=== PATIENT | male | born 1950 | race Two or more races ===

== ENCOUNTER 2025-06-02 06:30 | Inpatient (IN) | payer MEDICAID, OTHER ==
[~2025-06-02] VITALS: Ht 175.3 cm; Wt 79.5 kg
--- NOTE | 2025-06-02 06:52 | ED.PDOC ---
Altered Mental Status HPI Comments 74 y/o M, with known PMHx of DM is BIBA for CC of ALOC. EMS reports, S.O called d/t patient being on a private residence lawn, where he claimed he lived. Per EMS, patient did not live on residence and owners do not know who he is. EMS relays, patient is a poor historian and appears to have retrograde amnesia, jennifer ng unable to recall events leading up to his finding. Patient has notable abrasions to his bilateral knees and palms. No other symptoms or modifiers are obtainable at this time. Time Seen by MD: 06:45 Reviewed Notes: Nurses Notes, Outside Parts Sales Notes, Medications, Allergies Allergies: Coded Allergies: NO KNOWN ALLERGIES (Unverified , 06/02/25) Information Source: Emergency Med Personnel Mode of Arrival: EMS Severity: Moderate Timing: Hours Duration: Since onset Prehospital treatment: None Quality: Change in Behavior, Confusion Recent: None History of: Diabetes Associated Signs and Symptoms: None Past Medical History PAST MEDICAL HISTORY: DM Surgical History: Unobtainable Family History Family History: Unobtainable Social History Smoker: Unobtainable Alcohol: Unobtainable Drugs: Unobtainable Lives In: Unobtainable Unable to Obtain due to: Altered Mental Status Physical Exam General Appearance: Moderate Distress HEENT: Normal ENT Inspection, Pharynx Normal, TMs Normal Neck: Full Range of Motion, Non-Tender, Normal, Normal Inspection Respiratory: Chest Non-Tender, Lungs Clear, No Accessory Muscle Use, No Respiratory Distress, Normal Breath Sounds Cardiovascular: No Edema, No JVD, No Murmur, No Gallop, Normal Peripheral Pulses, Regular Rate/Rhythm Breast Exam: Deferred Gastrointestinal: No Organomegaly, Non Tender, No Pulsatile Mass, Normal Bowel Sounds, Soft Genitalia: Deferred Pelvic: Deferred Rectal: Deferred Extremities: No calf tenderness, Normal capillary refill, Normal range of motion, Non-tender, No pedal edema Musculoskeletal : Apperance: Normal Neurologic: md ophthalmologist II-XII nml as Tested, Disoriented (Able to answering name simple questions), No Motor Deficits, Normal Affect, Normal Mood, No Sensory Deficits Cerebellar Function: NOT DONE Reflexes: NOT DONE Skin: Bruises (Bilateral hand bilateral knee), Dry, Normal Color, Warm Peripheral Pulses: 3+ Radial (R), 3+ Radial (L) Lymphatic: No Adenopathy EKG EKG : Pulse Rate (adult): 85 [place]: Normal Cardiac Rhythm: NSR Block: None Hypertrophy: None ST: Normal Was a procedure done? Was a procedure done?: No Differential Diagnosis (ALOC) Differential Diagnosis: Dehydration, Encephalopathy, Closed Head Injury X-Ray, Labs, Meds, VS Vital Signs Date Time Temp Pulse Resp B/P (MAP) Pulse Ox O2 Delivery O2 Flow Rate FiO2 06/02/25 07:01 85 06/02/25 06:58 85 06/02/25 06:35 98.0 85 17 115/77 96 98.0 Lab Test 06/02/25 08:05 06/02/25 07:10 Range/Units POC Glucose 143 H 70-106 mg/dl White Blood Count 12.8 H 4.4-10.8 10^3/uL Red Blood Count 4.76 4.5-5.90 10^6/uL Hemoglobin 15.6 13.5-17.5 g/dL Hematocrit 44.1 41.0-53.0 % Mean Corpuscular Volume 92.7 80.0-100.0 fL Mean Corpuscular Hemoglobin 32.9 H 28.0-32.0 pg Mean Corpuscular Hemoglobin Concent 35.4 32.0-36.0 g/dL Red Cell Distribution Width 13.9 11.8-14.3 % Platelet Count 119 L 140-450 10^3/uL Mean Platelet Volume 8.2 6.9-10.8 fL Neutrophils (%) (Auto) 87.7 H 37.0-80.0 % Lymphocytes (%) (Auto) 6.6 L 10.0-50.0 % Monocytes (%) (Auto) 4.8 0.0-12.0 % Eosinophils (%) (Auto) 0.7 0.0-7.0 % Basophils (%) (Auto) 0.2 0.0-2.0 % Neutrophils # (Auto) 11.2 H 1.6-8.6 10 ^3/uL Lymphocytes # (Auto) 0.8 0.4-5.4 10 ^3/uL Monocytes # (Auto) 0.6 0-1.3 10 ^3/uL Eosinophils # (Auto) 0.1 0-0.8 10 ^3/uL Basophils # (Auto) 0 0-0.2 10 ^3/uL Nucleated Red Blood Cells 0.0 % Sodium Level 141 136-145 mmol/L Potassium Level 3.8 3.5-5.1 mmol/L Chloride Level 105 98-107 mmol/L Carbon Dioxide Level 25 20-31 mmol/L Anion Gap 11 5-15 Blood Urea Nitrogen 23 9-23 mg/dL Creatinine 1.23 0.700-1.30 mg/dL Glomerular Filtration Rate Calc 62 >90 mL/min BUN/Creatinine Ratio 18.7 10.0-20.0 Serum Glucose 178 H 74-106 mg/dL Calcium Level 9.5 8.7-10.4 mg/dL Troponin I High Sensitivity 10 </=54 ng/L Patient altered. Does not answer simple questions. Vitals stable. Answering questions. Has a bruises on his bilateral hand and knees. Establish intravenous access. Was given fluids. Tetanus. Continue to monitor. [place] [address] Ph: [phone] DIAGNOSTIC IMAGING Diagnostic Imaging Report : [id number] Signed PATIENT: WASHINGTON SIMMONS ACCT: [id number] UNIT: [id number] : 1950 LOC: ER ROOM / BED: / AGE / SEX: 74 / M ADM STATUS: REG ER SERVICE 0644 ORDERING PHYSICIAN: RADHA PACHECO MD PROCEDURE(s): HWOCT - HEAD WITHOUT CONTRAST REASON: fall ORDER NUMBER(s): [id number], ACCESSION NUMBER(s): [id number] CT HEAD WITHOUT CONTRAST INDICATION: fall EXAM DATE: 06/02/2025 07:30 AM COMPARISON: None RADIATION DOSE: CTDIvol: mGy, DLP: mGy*cm PROCEDURE: CT scans of the head were obtained from the vertex to the skull base. Sagittal and coronal reconstructions were provided. All CT scans at this medical facility are performed using dose modulation techniques as appropriate to a performed exam including the following: Automated exposure control was utilized; adjustment of the MA and/or KV according to patient size; and use of iterative reconstruction technique. FINDINGS: There is sulcal and ventricular prominence. The brainshows normal morphology and brewster-white matter differentiation, without intracranial hemorrhage, extra-axial fluid collection, mass effect or acute large vessel infarct. The ventricles are normal in size. The basal cisterns are patent. The skull and visible facial bones are intact. The paranasal sinuses, mastoid air cells and middle ear cavities are well-aerated. The soft tissues of the scalp are unremarkable. Right orbit calcifications are noted. IMPRESSION: No acute intracranial abnormality. ATED BY: ANDRES DANIELS MD DICTATED DATE/TIME: 06/02/25755 SIGNED BY: ANDRES DANIELS MD SIGNED DATE/TIME: 06/02/25755 CC: [place] [address] Ph: [phone] DIAGNOSTIC IMAGING Diagnostic Imaging Report : [id number] Signed PATIENT: WASHINGTON SIMMONS ACCT: [id number] UNIT: [id number] : 1950 LOC: ER ROOM / BED: / AGE / SEX: 74 / M ADM STATUS: REG ER SERVICE 3 ORDERING PHYSICIAN: RADHA PACHECO MD PROCEDURE(s): RKNE2 - R KNEE 2V XRAY REASON: fall ORDER NUMBER(s): [id number], ACCESSION NUMBER(s): [id number] XY R KNEE 2V XRAY, INDICATION: fall TECHNICAL DATA: Frontal and lateral views were obtained of the right knee. COMPARISON: None FINDINGS: No fracture is identified. Medial, lateral and patellofemoral compartment joint spaces are maintained. Alignment is anatomic. Soft tissues are within normal limits. No joint effusion is demonstrated. IMPRESSION: No acute fracture or dislocation of the right knee. ATED BY: ANDRES DANIELS MD DICTATED DATE/TIME: 06/02/25821 SIGNED BY: ANDRES DANIELS MD SIGNED DATE/TIME: 06/02/25821 CC: [address] [address] Ph: [phone] DIAGNOSTIC IMAGING Diagnostic Imaging Report : [id number] Signed PATIENT: WASHINGTON SIMMONS ACCT: [id number] UNIT: [id number] : 1950 LOC: ER ROOM / BED: / AGE / SEX: 74 / M ADM STATUS: REG ER SERVICE ORDERING PHYSICIAN: RADHA PACHECO MD PROCEDURE(s): LKNE2 - L KNEE 2V XRAY REASON: fall ORDER NUMBER(s): [id number], ACCESSION NUMBER(s): [id number] CLINICAL INDICATION: fall TECHNIQUE: XY L KNEE 2V XRAY Comparison: None FINDINGS/IMPRESSION: : There is no evidence of acute fracture or dislocation. Moderate tricompartmental degenerative change. ATED BY: POLO FREEMAN MD DICTATED DATE/TIME: 06/02/25820 SIGNED BY: POLO FREEMAN MD SIGNED DATE/TIME: 06/02/25820 CC: [place] [address] Ph: [phone] DIAGNOSTIC IMAGING Diagnostic Imaging Report : [id number] Signed PATIENT: WASHINGTON SIMMONS ACCT: [id number] UNIT: [id number] : 1950 LOC: ER ROOM / BED: / AGE / SEX: 74 / M ADM STATUS: REG ER SERVICE ORDERING PHYSICIAN: RADHA PACHECO MD PROCEDURE(s): RHAN2 - R HAND 2 VIEW XRAY REASON: fall ORDER NUMBER(s): [id number], ACCESSION NUMBER(s): [id number] XY R HAND 2 VIEW XRAY, INDICATION: fall TECHNICAL DATA: Frontal, and lateral views were obtained of the right hand. COMPARISON: None FINDINGS: No fracture is identified. Joint spaces are maintained. Alignment is anatomic. Soft tissues are within normal limits. IMPRESSION: No acute fracture or dislocation of the right hand. ATED BY: ANDRES DANIELS MD DICTATED DATE/TIME: 06/02/25822 SIGNED BY: ANDRES DANIELS MD SIGNED DATE/TIME: 06/02/25822 CC: [place] [address] Ph: [phone] DIAGNOSTIC IMAGING Diagnostic Imaging Report : [id number] Signed PATIENT: WASHINGTON SIMMONS ACCT: [id number] UNIT: [id number] : 1950 LOC: ER ROOM / BED: / AGE / SEX: 74 / M ADM STATUS: REG ER SERVICE 3 ORDERING PHYSICIAN: RADHA PACHECO MD PROCEDURE(s): LHAN2 - L HAND 2V XRAY REASON: fall ORDER NUMBER(s): [id number], ACCESSION NUMBER(s): [id number] XY L HAND 2V XRAY, INDICATION: fall TECHNICAL DATA: Frontal and lateral views were obtained of the left hand. COMPARISON: None FINDINGS: No acute fracture is identified. Joint spaces are maintained. Alignment is anatomic. Soft tissues are within normal limits. Old ulna styloid fracture. IMPRESSION: No acute fracture or dislocation of the left hand. ATED BY: ANDRES DANIELS MD DICTATED DATE/TIME: 06/02/25823 SIGNED BY: ANDRES DANIELS MD SIGNED DATE/TIME: 06/02/25823 CC: Time of 1ST Reevaluation: 07:15 Reevaluation 1ST: Unchanged Patient Education/Counseling: Diagnosis, Treatment Family Education/Counseling: No Family Present SEPSIS Sepsis Screen Physician Orders R Hand 2 View Xray (06/02/25 06:44) L Hand 2v Xray (06/02/25 06:44) Troponin-I Hs (06/02/25 07:44) Troponin-I Hs (06/02/25 09:44) Head Without Contrast (06/02/25 06:44) R Knee 2v Xray (06/02/25 06:44) L Knee 2v Xray (06/02/25 06:44) Vital Signs Date Time Temp Pulse Resp B/P (MAP) Pulse Ox O2 Delivery O2 Flow Rate FiO2 06/02/25 07:01 85 06/02/25 06:58 85 06/02/25 06:35 98.0 85 17 115/77 96 98.0 Laboratory Tests Test 06/02/25 07:10 White Blood Count 12.8 10^3/uL (4.4-10.8) H Departure 1 Departure Time of Disposition: 06:55 Impression: Primary Impression: Metabolic encephalopathy Disposition: 09 ADMITTED INPATIENT Admit to: Med Surg Condition: Guarded Critical Care Note Critical Care Time?: No Stability Stability form required: No Heart Score Heart Score: Heart Score Response (Comments) Value History N/A 0 EKG N/A 0 Age N/A 0 Risk Factors N/A 0 Troponin N/A 0 Total 0 I personally scribed for RADHA PACHECO MD ([email or web address]) on 06/02/25 at 06:52. Electronically submitted by Alissa Lindsay ([email or web address]). I personally scribed for RADHA PACHECO MD ([email or web address]) on 06/02/25 at 07:01. Electronically submitted by Alissa Lindsay ([email or web address]). I personally scribed for RADHA PACHECO MD ([email or web address]) on 06/02/25 at 08:32. Electronically submitted by Alissa Lindsay ([email or web address]). I personally scribed for RADHA PACHECO MD ([email or web address]) on 06/02/25 at 08:33. Electronically submitted by Alissa Lindsay ([email or web address]). I personally scribed for RADHA PACHECO MD ([email or web address]) on 06/02/25 at 08:34. Electronically submitted by Alissa Lindsay ([email or web address]). I personally scribed for RADHA PACHECO MD ([email or web address]) on 06/02/25 at 08:34. Electronically submitted by Alissa Lindsay ([email or web address]). I personally scribed for RAHDA PACHECO MD ([email or web address]) on 06/02/25 at 08:35. Electronically submitted by Alissa Lindsay ([email or web address]). RADHA PACHECO MD Jun 02, 2025 06:52
--- NOTE | 2025-06-02 07:00 | ECG ---
[facility] Test Date: 2025-06-02 Test Time: 06:58:46 Pat Name: WASHINGTON SIMMONS Department: Room: [address] [place] [address] Gender: M [employer]: SIMRAN : 1950 Requested By: EMERGENCY EMERGENCY Order Number: [id number] Reading MD: Grover Benedict Measurements Intervals Knott Rate: 85 P: 36 VA: 194 QRS: 234 QRSD: 105 T: 12 QT: 374 QTc: 445 Interpretive Statements Sinus rhythm Right axis deviation Consider anterior infarct Electronically Signed On 06-02-2025 17:58:07 PDT by Grover Benedict Please click the below link to view image of tracing.
[2025-06-02 07:28] LABS: Hematocrit 44.1 % (41.0-53.0); Hemoglobin 15.6 g/dL (13.5-17.5); Mean Corpuscular Hemoglobin 32.9 pg (28.0-32.0); Mean Corpuscular Volume 92.7 fL (80.0-100.0); Nucleated Red Blood Cells % 0.0 %
[2025-06-02 07:34] LABS: Chloride 105 mmol/L (98-107); Potassium 3.8 mmol/L (3.5-5.1); Sodium 141 mmol/L (136-145)
[2025-06-02 07:35] LABS: Anion Gap 11 (5-15); Calcium 9.5 mg/dL (8.7-10.4); Carbon Dioxide 25 mmol/L (20-31)
[2025-06-02 07:40] LABS: BUN/Creatinine Ratio 18.7 (10.0-20.0)
[2025-06-02 07:47] LABS: Blood Urea Nitrogen 23 mg/dL (9-23); Glucose 178 mg/dL (74-106)
--- NOTE | 2025-06-02 07:58 | DVH ---
CT HEAD WITHOUT CONTRAST INDICATION: fall EXAM DATE: 06/02/2025 07:30 AM COMPARISON: None RADIATION DOSE: CTDIvol: mGy, DLP: mGy*cm PROCEDURE: CT scans of the head were obtained from the vertex to the skull base. Sagittal and coronal reconstructions were provided. All CT scans at this medical facility are performed using dose modulation techniques as appropriate t o a performed exam including the following: Automated exposure control was utilized; adjustment of th e MA and/or KV according to patient size; and use of iterative reconstruction technique. FINDINGS: There is sulcal and ventricular prominence. The brainshows normal morphology and brewster-whi te matter differentiation, without intracranial hemorrhage, extra-axial fluid collection, mass effect or acute large vessel infarct. The ventricles are normal in size. The basal cisterns are patent. The skull and visible facial bones are intact. The paranasal sinuses, mastoid air cells and middle ear c avities are well-aerated. The soft tissues of the scalp are unremarkable. Right orbit calcifications are noted. IMPRESSION: No acute intracranial abnormality.
[2025-06-02 08:06] VITALS: PULSE 71; RESP 15; TEMP 97.7; O2SAT 95
--- NOTE | 2025-06-02 08:24 | DVH ---
CLINICAL INDICATION: fall TECHNIQUE: XY L KNEE 2V XRAY Comparison: None FINDINGS/IMPRESSION: : There is no evidence of acute fracture or dislocation. Moderate tricompartmental degenerative change.
--- NOTE | 2025-06-02 08:25 | DVH ---
XY R KNEE 2V XRAY, INDICATION: fall TECHNICAL DATA: Frontal and lateral views were obtained of the right knee. COMPARISON: None FINDINGS: No fracture is identified. Medial, lateral and patellofemoral compartment joint spaces are maintained . Alignment is anatomic. Soft tissues are within normal limits. No joint effusion is demonstrated. IMPRESSION: No acute fracture or dislocation of the right knee.
--- NOTE | 2025-06-02 08:26 | DVH ---
XY R HAND 2 VIEW XRAY, INDICATION: fall TECHNICAL DATA: Frontal, and lateral views were obtained of the right hand. COMPARISON: None FINDINGS: No fracture is identified. Joint spaces are maintained. Alignment is anatomic. Soft tissues are withi n normal limits. IMPRESSION: No acute fracture or dislocation of the right hand.
--- NOTE | 2025-06-02 08:27 | DVH ---
XY L HAND 2V XRAY, INDICATION: fall TECHNICAL DATA: Frontal and lateral views were obtained of the left hand. COMPARISON: None FINDINGS: No acute fracture is identified. Joint spaces are maintained. Alignment is anatomic. Soft tissues are within normal limits. Old ulna styloid fracture. IMPRESSION: No acute fracture or dislocation of the left hand.
[2025-06-02] MEDS: TETANUS-DIPTH-ACEL PERTUSSIS 0.5ML SYR Tdap IM ONE (09:17)
[2025-06-02] MEDS: SODIUM CHLORIDE 0.9% 1,000 ML IV ONE ×2 (09:17→13:28)
[2025-06-02] MEDS ORDERED: MEMA1TAB5 PO (10:29)
[2025-06-02] MEDS ORDERED: SIMV40TA18 PO (10:29)
[2025-06-02] MEDS ORDERED: GLIP2.5T9 PO (10:29)
--- NOTE | 2025-06-02 10:29 | DVHHP2 ---
History of Present Illness Reason for Visit: [facility] History of Present Illness 74-year-old male with a past medical history of type 2 diabetes mellitus, hypertension, hyperlipidemia, and dementia presents to the emergency department for evaluation of altered level of consciousness. The patient is alert and oriented to name and date of but is a poor historian and unable to provide an account of the events leading to presentation. Collateral information from nursing staff and family reveals that the patient wondered off and was later found at a stranger's home. At that time, he had visible injuries including bilateral contusions and abrasions to his knees and hands. 911 was called, and EMS brought the patient to the emergency department for further evaluation. The patient denies acute pain, though his insight is limited due to cognitive impairment. Past Medical History As stated in HPI Past Surgical History Denies Family History Reviewed, non-contributory to the management of this case. Past Social History The patient lives at home, denies smoking, alcohol or illicit drugs abuse. Review of Systems Constitutional: Yes: Malaise; No: Fever, Chills, Sweats, Weakness, Other Eyes: No: Pain, Vision change, Conjunctivae inflammation, Eyelid inflammation, Other, Redness ENT: No: Ear pain, Ear discharge, Nose pain, Nose discharge, Nose congestion, Mouth pain, Mouth swelling, Throat pain, Throat swelling, Other Respiratory: No: Cough, Dry, Shortness of breath, SOB with excertion, Wheezing, Hemoptysis, Pleuritic Pain, Sputum, Wheezing, Other Cardiovascular: No: Chest Pain, Palpitations, Orthopnea, Paroxysmal Noc. D yspnea, Edema, Lt Headedness, Other Gastrointestinal: No: Nausea, Vomiting, Abdominal Pain, Diarrhea, Constipation, Melena, Hematochezia, Other Musculoskeletal: No: other, neck pain, shoulder pain, arm pain, back pain, hand pain, leg pain, foot pain Skin: Other (Abrasions) Neurological: Confusion Allergies: Coded Allergies: NO KNOWN ALLERGIES (Unverified , 06/02/25) Exam Vital Signs Vital Signs Date Time Temp Pulse Resp B/P (MAP) Pulse Ox O2 Delivery O2 Flow Rate FiO2 06/02/25 09:35 69 06/02/25 08:06 15 95 Room Air* 0 21 06/02/25 08:06 97.7 119/72 (88) 97.7 General Appearance: Alert, Other (Alert and oriented x2. At baseline per family) HEENT: Atraumatic, PERRLA, EOMI Respiratory: Clear to auscultation, Normal air movement Cardiovascular: Regular rate, Normal S1, Normal S2 Abdominal: Normal bowel sounds, Soft, No tenderness Extremities: Other (Abrasion and contusions noted bilateral on knees and hands. No active bleeding) Neuro: Normal tone Labs/Xrays Labs Test 06/02/25 08:52 06/02/25 08:05 06/02/25 07:10 Range/Units Troponin I High Sensitivity 25 </=54 ng/L POC Glucose 143 H 70-106 mg/dl White Blood Count 12.8 H 4.4-10.8 10^3/uL Red Blood Count 4.76 4.5-5.90 10^6/uL Hemoglobin 15.6 13.5-17.5 g/dL Hematocrit 44.1 41.0-53.0 % Mean Corpuscular Volume 92.7 80.0-100.0 fL Mean Corpuscular Hemoglobin 32.9 H 28.0-32.0 pg Mean Corpuscular Hemoglobin Concent 35.4 32.0-36.0 g/dL Red Cell Distribution Width 13.9 11.8-14.3 % Platelet Count 119 L 140-450 10^3/uL Mean Platelet Volume 8.2 6.9-10.8 fL Neutrophils (%) (Auto) 87.7 H 37.0-80.0 % Lymphocytes (%) (Auto) 6.6 L 10.0-50.0 % Monocytes (%) (Auto) 4.8 0.0-12.0 % Eosinophils (%) (Auto) 0.7 0.0-7.0 % Basophils (%) (Auto) 0.2 0.0-2.0 % Neutrophils # (Auto) 11.2 H 1.6-8.6 10 ^3/uL Lymphocytes # (Auto) 0.8 0.4-5.4 10 ^3/uL Monocytes # (Auto) 0.6 0-1.3 10 ^3/uL Eosinophils # (Auto) 0.1 0-0.8 10 ^3/uL Basophils # (Auto) 0 0-0.2 10 ^3/uL Nucleated Red Blood Cells 0.0 % Sodium Level 141 136-145 mmol/L Potassium Level 3.8 3.5-5.1 mmol/L Chloride Level 105 98-107 mmol/L Carbon Dioxide Level 25 20-31 mmol/L Anion Gap 11 5-15 Blood Urea Nitrogen 23 9-23 mg/dL Creatinine 1.23 0.700-1.30 mg/dL Glomerular Filtration Rate Calc 62 >90 mL/min BUN/Creatinine Ratio 18.7 10.0-20.0 Serum Glucose 178 H 74-106 mg/dL Calcium Level 9.5 8.7-10.4 mg/dL PROCEDURE(s): HWOCT - HEAD WITHOUT CONTRAST REASON: fall ORDER NUMBER(s): [id number], ACCESSION NUMBER(s): [id number] CT HEAD WITHOUT CONTRAST INDICATION: fall EXAM DATE: 06/02/2025 07:30 AM COMPARISON: None RADIATION DOSE: CTDIvol: mGy, DLP: mGy*cm PROCEDURE: CT scans of the head were obtained from the vertex to the skull base. Sagittal and coronal reconstructions were provided. All CT scans at this medical facility are performed using dose modulation tech niques as appropriate to a performed exam including the following: Automated exposure control was utilized; adjustment of the MA and/or KV according to patient size; and use of iterative reconstruction technique. FINDINGS: There is sulcal and ventricular prominence. The brainshows normal morphology and brewster-white matter differentiation, without intracranial hemorrhage, extra-axial fluid collection, mass effect or acute large vessel infarct. The ventricles are normal in size. The basal cisterns are patent. The skull and visible facial bones are intact. The paranasal sinuses, mastoid air cells and middle ear cavities are well-aerated. The soft tissues of the scalp are unremarkable. Right orbit calcifications are noted. IMPRESSION: No acute intracranial abnormality. SEPSIS Sepsis Screen Date sepsis recognized/suspect: Jun 02, 2025 Time Sepsis recognized/suspect: 08:06 Recent Procedure: No On Antibiotic Therapy: No Respiratory Rate >20: No Heart Rate >90: No Temp<36 C (96.8 F) or >38.3 C: No SBP <90 or MAP <65 mmHG: No New Acute Mental Status Change: No Is the patient on CPAP, BIPAP,: No Physician Orders R Hand 2 View Xray (06/02/25 06:44) L Hand 2v Xray (06/02/25 06:44) Troponin-I Hs (06/02/25 09:44) Head Without Contrast (06/02/25 06:44) R Knee 2v Xray (06/02/25 06:44) L Knee 2v Xray (06/02/25 06:44) Lactic Acid W/ Reflex Order (06/02/25 08:56) Blood Culture (06/02/25 08:56) Urinalysis (06/02/25 10:18) Chest Portable (06/02/25 10:18) Straightcath If Unable To Void (06/02/25 10:24) Communication Order (06/02/25 10:24) Vital Signs Date Time Temp Pulse Resp B/P (MAP) Pulse Ox O2 Delivery O2 Flow Rate FiO2 06/02/25 09:35 69 06/02/25 08:06 71 15 95 Room Air* 0 21 06/02/25 08:06 97.7 71 15 119/72 (88) 95 97.7 06/02/25 07:01 85 06/02/25 06:58 85 06/02/25 06:35 98.0 85 17 115/77 96 98.0 Laboratory Tests Test 06/02/25 07:10 White Blood Count 12.8 10^3/uL (4.4-10.8) H Medications Medications Dose Ordered Sig/Tino Route Start Time Stop Time Status Last Admin Dose Admin Diphtheria/ Tetanus/Acell Pertussis 0.5 ml ONCE ONCE IM 06/02/25 06:45 06/02/25 06:47 DC 06/02/25 09:17 0.5 ML Sodium Chloride 1,000 ml @ 1,000 mls/hr Q1H ONCE IV 06/02/25 06:45 06/02/25 07:44 DC 06/02/25 09:17 1,000 MLS/HR Assessment/Plan Assessment/Plan # acute metabolic encephalopathy # leukocytosis, rule out UTI * Admit to medical-surgical unit * UA pending * Empiric antibiotic * Urine culture and blood culture * IV fluid # possible Falls bilateral hands and knee abrasions and contusions * Tetanus given in ED * High fall risk precautions # dementia * CT of head reviewed no acute pathology * Continue with memantine # type 2 diabetes * Continue with glipizide * Insulin sliding scale * Check A1c # hyperlipidemia * Continue with lipid lowering agents * Check lipid panel # hypertension * Continue with lisinopril and hydrochlorothiazide * Hydralazine as needed * Monitor DVT prophylaxis Medical plan discussed with patient and medical staff Plan discussed with: Patient My Orders Orders - BETHEL LONDON Procedure Category Date Status Time Urinalysis LAB 06/02/25 Logged 10:18 Chest Portable XY 06/02/25 Taken 10:18 Straightcath If ORDERS 06/02/25 Transmitted Unable To Void 10:24 Communication Order ORDERS 06/02/25 Transmitted 10:24 Date of Service: Jun 02, 2025 Billing Provider: BETHEL LONDON Common Visit Codes: [id number] INP/OBS CARE (HIGH) Consultation Codes: [id number] CONSULT <45MIN BETHEL LONDON Jun 02, 2025 10:29
[2025-06-02] MEDS ORDERED: ONDANSETRON HCL 4 MG/2 ML VIAL IV PRN (10:30)
[2025-06-02] MEDS: SODIUM CHLORIDE 0.9% 1,000 ML IV SCH (10:58)
--- NOTE | 2025-06-02 11:14 | DVH ---
EXAM: XY CHEST PORTABLE CLINICAL HISTORY: aloc TECHNIQUE: Single AP view of the chest WID: COMPARISON: None FINDINGS: Lines and tubes: None Chest: The heart size and pulmonary vasculature is within normal limits. Calcified plaque projects over the aortic arch. No pleural effusion, pneumothorax, or consolidation. Limited depth of inspiration. Linear left-greate [id number]-soir-[id number] perihilar and bibasilar opacities. The osseous structures are grossly intact. Multilevel thoracic spondylosis. IMPRESSION: 1. Limited depth of inspiration with linear bibasilar scarring or atelectasis.
[2025-06-02] MEDS ORDERED: DEXTROSE (50%) 50ML SYRG IV PRN (11:15)
[2025-06-02] MEDS ORDERED: hydrALAZINE HCL 20 MG/ML VL IV PRN (11:30)
[2025-06-02] MEDS: InsuLIN REG 1unit/0.01ml Soln (100units/ml) SC SCH (11:30)
[2025-06-02 11:41] LABS: Triglycerides 102 mg/dL (< 150)
[2025-06-02 11:43] LABS: Cholesterol 112 mg/dL (< 200); HDL Cholesterol 41 mg/dL (40-59)
[2025-06-02] MEDS: ACCU-CHEK COMFORT CURVE STRIP VI SCH (11:51)
[2025-06-02 11:59] LABS: Lactic Acid w/Reflex 2.6 mmol/L (0.4-2.0)
[2025-06-02] MEDS: hydroCHLOROthiazide 25 MG TAB PO ONE (12:01)
[2025-06-02] MEDS: LISINOPRIL 20 MG TAB PO ONE (12:01)
[2025-06-02 12:36] LABS: Urine Protein, UAD Negative (Negative)
[2025-06-02 14:00] VITALS: BP 149/79; PULSE 87; RESP 21; O2SAT 96
[2025-06-02] MEDS ORDERED: HALOPERIDOL LACTATE 5 MG/ML INJ VIAL IM PRN (14:15)
[2025-06-02] MEDS ORDERED: DOXYCYCLINE 100 MG TAB/CAP PO SCH (22:00)
[2025-06-02] MEDS ORDERED: CEPHALEXIN 250 MG CAP PO SCH (22:00)
[2025-06-02] MEDS ORDERED: ATORVASTATIN 20 MG TAB PO SCH (22:00)
[2025-06-02] MEDS ORDERED: MEMANTINE HCL 5 MG TAB PO SCH (22:00)
[2025-06-03] MEDS ORDERED: ENOXAPARIN SOD 40 MG/0.4 ML SYRINGE SC SCH (10:00)
[2025-06-03] MEDS ORDERED: LISINOPRIL 20 MG TAB PO SCH (10:00)
[2025-06-03] MEDS ORDERED: GLIPIZIDE 2.5 MG PO SCH (10:00)
[2025-06-03] MEDS ORDERED: hydroCHLOROthiazide 25 MG TAB PO SCH (10:00)
== END 2025-06-02 16:11 | disposition left against medical advice (07) | DRG 52 ==
LOC: EDBD 06:30 → ER 06:36 → OVERFLOW 10:25
PROVIDERS: ADMIT Registered Nurse; ATTEND Registered Nurse
DX: G93.41 Metabolic encephalopathy (principal); D72.829 Elevated white blood cell count, unspecified; F03.90 Unspecified dementia, unspecified severity, without behavioral disturbance, psychotic disturbance, mood disturbance, and anxiety; E11.9 Type 2 diabetes mellitus without complications; E78.5 Hyperlipidemia, unspecified; N39.0 Urinary tract infection, site not specified; I10 Essential (primary) hypertension; S80.212A Abrasion, left knee, initial encounter; S80.211A Abrasion, right knee, initial encounter; F17.200 Nicotine dependence, unspecified, uncomplicated; Z53.29 Procedure and treatment not carried out because of patient's decision for other reasons; W18.39XA Other fall on same level, initial encounter; S60.222A Contusion of left hand, initial encounter; S60.221A Contusion of right hand, initial encounter; Y93.89 Activity, other specified; Y92.89 Other specified places as the place of occurrence of the external cause; Y99.8 Other external cause status
CPT/HCPCS: 36415; 70450; 71045; 73120; 73560; 80048; 80061; 81001; 82962; 83036; 83605; 84443; 84484; 85025; 87040; 90471; 90715; 93005; 96360; G0378